=== PATIENT | male | born 1950 | race Caucasian/White ===

== ENCOUNTER → 2021-05-21 | Outpatient (CLI) | payer MEDICARE, BC ==
--- NOTE | 2021-05-21 11:42 | REP ---
INDICATION: ACUTE BRONCHITIS. COMPARISON: None TECHNIQUE: Two views of the chest were obtained FINDINGS: Linear areas of increased density in both lung bases are consistent with scarring and/or subsegmental atelectasis. No other parenchymal opacification is noted. The heart and great vessels are within normal limits for the patient's age. Mild degenerative changes are noted the thoracic spine. IMPRESSION: Scarring and or subsegmental atelectasis at both lung bases as above. <Electronically signed by Singh Messer > 05/21/21 [id number]
== END ==
LOC: M WUC 11:11
PROVIDERS: ATTEND Internal Medicine
DX: J20.9 Acute bronchitis, unspecified (principal)

== ENCOUNTER → 2022-09-29 | Outpatient (CLI) | payer MEDICARE, BC ==
[~2022-09-29] MED LIST: BAYE81TA10 PO; CENT1TAB PO; CHLO125TA PO; DUPI300P SC; LOSA50TA28 PO; POTA99CA2 PO; SIMV20TA22 PO; TADA5TAB PO; ZINC50TA17 PO
== END ==
LOC: M LABSMTC 09:27
PROVIDERS: ATTEND Anesthesiology
DX: Z01.818 Encounter for other preprocedural examination (principal); Z11.52 Encounter for screening for COVID-19

== ENCOUNTER → 2022-09-29 | Outpatient (CLI) | payer MEDICARE ==
[2022-09-29 12:00] LABS: BLOOD UREA NITROGEN 13 MG/DL (9-23); CALCIUM LEVEL 8.5 MG/DL (8.3-10.6); CARBON DIOXIDE LEVEL 30 MMOL/L (20-31); CHLORIDE LEVEL 93 MMOL/L (98-107); CREATININE FOR GFR 0.69 MG/DL (0.70-1.30); GLOMERULAR FILTRATION RATE > 60.0 (>42); GLUCOSE, FASTING 90 MG/DL (74-106); SODIUM LEVEL 130 MMOL/L (136-145)
== END ==
LOC: M EKG 10:21
PROVIDERS: ATTEND Anesthesiology
DX: Z01.818 Encounter for other preprocedural examination (principal)

== ENCOUNTER 2022-10-02 07:44 | Day surgery (SDC) | payer MEDICARE ==
[~2022-10-02] VITALS: Ht 177.8 cm; Wt 89.7 kg
[~2022-10-02 07:44] MED LIST changes: +NS 1,000 ML IV ONE
[2022-10-02] MEDS ORDERED: LIDOCAINE 2% 100MG/5ML SDV (FOR ANES.) As Ordered ONE (09:05)
[2022-10-02] MEDS ORDERED: propofoL 200 MG/20 ML VIAL As Ordered ONE (09:05)
[2022-10-02] MEDS ORDERED: hydrALAZINE 20MG/ML 1ML VIAL As Ordered ONE (09:06)
[2022-10-02 09:35] VITALS: BP 128/74
== END 2022-10-02 09:45 | disposition home or self-care (01) ==
LOC: M OPP 07:44
PROVIDERS: ATTEND Surgery
DX: Z86.010 Personal history of colon polyps (principal); D12.5 Benign neoplasm of sigmoid colon; K57.30 Diverticulosis of large intestine without perforation or abscess without bleeding; E78.00 Pure hypercholesterolemia, unspecified; I10 Essential (primary) hypertension; Z79.02 Long term (current) use of antithrombotics/antiplatelets; Z79.82 Long term (current) use of aspirin; Z79.899 Other long term (current) drug therapy; Z86.16 Personal history of COVID-19; Z87.891 Personal history of nicotine dependence
CPT/HCPCS: 45385; 88305; J0360

== ENCOUNTER → 2022-10-03 | Outpatient (CLI) | payer MEDICARE ==
[~2022-10-03] MED LIST changes: -NS 1,000 ML IV ONE
== END ==
LOC: M LABSMTC 08:54
PROVIDERS: ATTEND Anesthesiology
DX: Z01.818 Encounter for other preprocedural examination (principal); Z11.52 Encounter for screening for COVID-19

== ENCOUNTER 2022-10-07 06:01 | Day surgery (SDC) | payer MEDICARE ==
[~2022-10-07] VITALS: Ht 177.8 cm; Wt 89.8 kg
[~2022-10-07 06:01] MED LIST changes: +ceFAZolin SOD 2 GM in IV 1 EA IV ONE
[2022-10-07] MEDS ORDERED: SUGAMMADEX SODIUM 500 MG/5 ML VIAL (BRIDION) As Ordered ONE (06:57)
[2022-10-07] MEDS ORDERED: ROCURONIUM BROMIDE 50MG/5ML VIAL As Ordered ONE (06:57)
[2022-10-07] MEDS ORDERED: propofoL 200 MG/20 ML VIAL As Ordered ONE (06:57)
[2022-10-07] MEDS ORDERED: KETOROLAC 60MG 2ML VIAL As Ordered ONE (06:57)
[2022-10-07] MEDS ORDERED: ONDANSETRON 4MG 2ML VIAL As Ordered ONE (06:57)
[2022-10-07] MEDS ORDERED: LIDOCAINE 2% 100MG/5ML SDV (FOR ANES.) As Ordered ONE (06:57)
[2022-10-07] MEDS ORDERED: fentaNYL 100 MCG/2 ML INJECTION As Ordered ONE (07:05)
[2022-10-07] MEDS ORDERED: BUPIVACAINE/EPIN 0.25% 30ML VIAL As Ordered ONE (07:16)
[2022-10-07] MEDS ORDERED: ACETAMINOPHEN 1000MG 100ML IV BAG As Ordered ONE (07:46)
[2022-10-07] MEDS ORDERED: LABETALOL 100MG/20ML VIAL As Ordered ONE (08:21)
[2022-10-07] MEDS ORDERED: oxyCODONE 5MG TAB PO PRN (09:00)
[2022-10-07] MEDS ORDERED: fentaNYL 100 MCG/2 ML INJECTION IV PRN (09:00)
[2022-10-07] MEDS ORDERED: MEPERIDINE 25 MG/ML 1ML VIAL IV PRN (09:00)
[2022-10-07] MEDS ORDERED: METOCLOPRAMIDE INJ 10MG/2ML VIAL IV PRN (09:00)
[2022-10-07] MEDS ORDERED: LR 1,000 ML IV SCH (09:00)
[2022-10-07] MEDS ORDERED: ONDANSETRON 4MG 2ML VIAL IV PRN (09:00)
[2022-10-07] MEDS: MORPHINE 2 MG/ML 1ML VIAL IV PRN ×2 (09:17→09:25)
[2022-10-07] MEDS ORDERED: traMADol 50 MG TAB PO PRN (10:00)
[2022-10-07] MEDS ORDERED: NS 1,000 ML IV SCH (10:00)
[2022-10-07 10:19] VITALS: BP 156/87
== END 2022-10-07 10:25 | disposition home or self-care (01) ==
LOC: M SDC 06:01
PROVIDERS: ATTEND Surgery
DX: K40.90 Unilateral inguinal hernia, without obstruction or gangrene, not specified as recurrent (principal); I10 Essential (primary) hypertension; E78.5 Hyperlipidemia, unspecified; Z79.899 Other long term (current) drug therapy; Z86.16 Personal history of COVID-19; Z87.891 Personal history of nicotine dependence
CPT/HCPCS: 49650; C1781; J0131; J1100; J1885; J2405; J3010

== ENCOUNTER → 2023-05-06 | Outpatient (CLI) | payer MEDICARE ==
[~2023-05-06] MED LIST changes: -ceFAZolin SOD 2 GM in IV 1 EA IV ONE
[2023-05-06 11:29] LABS: BASO % 0.6 % (0.0-1.0); EOS # 0.2 10^3/uL (0.0-0.5); EOS % 6.8 % (0.0-3.0); HEMATOCRIT 40.5 % (42.0-52.0); HEMOGLOBIN 14.5 g/dl (13.5-17.5); LYMPH % 28.3 % (24.0-44.0); MEAN CORPUSCULAR HEMOGLOBIN 34.6 pg (27.0-33.0); MEAN CORPUSCULAR HGB CONC 35.8 g/dl (32.0-36.5); MEAN CORPUSCULAR VOLUME 96.7 fl (80.0-96.0); MONO # 0.5 10^3/uL (0.0-0.8); MONO % 14.7 % (2.0-8.0); NEUTROPHILS # 1.7 10^3/uL (1.5-8.5); NEUTROPHILS % 49.3 % (36.0-66.0); PLATELET COUNT, AUTOMATED 167 10^3/uL (150-450); RED BLOOD COUNT 4.19 10^6/uL (4.30-6.10); WHITE BLOOD COUNT 3.5 10^3/uL (4.0-10.0)
[2023-05-06 11:52] LABS: HEMOGLOBIN A1c 5.1 % (4.0-6.0)
[2023-05-06 11:56] LABS: THYROID STIMULATING HORMONE 1.506 uIU/ML (0.55-4.78)
[2023-05-06 11:57] LABS: ALBUMIN 3.8 G/DL (3.2-5.2); ALKALINE PHOSPHATASE 85 U/L (46-116); ALT/SGPT 27 U/L (7.0-40); AST/SGOT 21 U/L (<34); BILIRUBIN,TOTAL 0.8 MG/DL (0.3-1.2); BLOOD UREA NITROGEN 15 MG/DL (9-23); CALCIUM LEVEL 8.8 MG/DL (8.3-10.6); CARBON DIOXIDE LEVEL 29 MMOL/L (20-31); CHLORIDE LEVEL 95 MMOL/L (98-107); CHOLESTEROL LEVEL 146 MG/DL (<200); CHOLESTEROL RISK RATIO 2.74 (<5); CREATININE FOR GFR 0.72 MG/DL (0.70-1.30); GLOMERULAR FILTRATION RATE > 60.0 (>42); GLUCOSE, FASTING 89 MG/DL (74-106); HDL CHOLESTEROL 53.1 MG/DL (>40); LDL CHOLESTEROL 75.9 MG/DL (<100); NON-HDL-C 92.9 MG/DL; POTASSIUM SERUM 3.8 MMOL/L (3.5-5.1); SODIUM LEVEL 132 MMOL/L (136-145); TOTAL PROTEIN 6.2 G/DL (5.7-8.2); TRIGLYCERIDES LEVEL 85 MG/DL (<150)
== END ==
LOC: M PLALAB 08:16
PROVIDERS: ATTEND Physician Assistant
DX: R53.83 Other fatigue (principal); E78.00 Pure hypercholesterolemia, unspecified; Z12.5 Encounter for screening for malignant neoplasm of prostate
CPT/HCPCS: 36415; 80053; 80061; 83036; 84439; 84443; 85025; G0103

== ENCOUNTER → 2023-06-18 | Outpatient (CLI) | payer MEDICARE ==
[2023-06-18 11:43] LABS: BASO % 0.4 % (0.0-1.0); EOS # 0.3 10^3/uL (0.0-0.5); EOS % 5.6 % (0.0-3.0); HEMATOCRIT 40.1 % (42.0-52.0); HEMOGLOBIN 14.6 g/dl (13.5-17.5); LYMPH # 1.4 10^3/uL (1.5-5.0); LYMPH % 30.9 % (24.0-44.0); MEAN CORPUSCULAR HEMOGLOBIN 35.4 pg (27.0-33.0); MEAN CORPUSCULAR HGB CONC 36.4 g/dl (32.0-36.5); MEAN CORPUSCULAR VOLUME 97.1 fl (80.0-96.0); MONO # 0.5 10^3/uL (0.0-0.8); MONO % 11.9 % (2.0-8.0); NEUTROPHILS # 2.3 10^3/uL (1.5-8.5); PLATELET COUNT, AUTOMATED 177 10^3/uL (150-450); RED BLOOD COUNT 4.13 10^6/uL (4.30-6.10); WHITE BLOOD COUNT 4.5 10^3/uL (4.0-10.0)
[2023-06-18 11:47] LABS: IRON (FE) 142 UG/DL (65-175); PERCENT SATURATION 46.6 % (19.7-50.0); TOTAL IRON BINDING CAPACITY 305 UG/DL (250-425)
[2023-06-18 11:48] LABS: ALBUMIN 3.7 G/DL (3.2-5.2); ALKALINE PHOSPHATASE 88 U/L (46-116); ALT/SGPT 25 U/L (7.0-40); AST/SGOT 16 U/L (<34); BILIRUBIN,TOTAL 0.7 MG/DL (0.3-1.2); BLOOD UREA NITROGEN 12 MG/DL (9-23); CARBON DIOXIDE LEVEL 28 MMOL/L (20-31); CHLORIDE LEVEL 96 MMOL/L (98-107); CREATININE FOR GFR 0.68 MG/DL (0.70-1.30); GLOMERULAR FILTRATION RATE > 60.0 (>42); GLUCOSE, FASTING 110 MG/DL (74-106); SODIUM LEVEL 131 MMOL/L (136-145); TOTAL PROTEIN 6.1 G/DL (5.7-8.2)
[2023-06-18 11:50] LABS: FERRITIN 111.2 NG/ML (10.5-307.3); VITAMIN B12 LEVEL 357 PG/ML (211-911)
== END ==
LOC: M PLALAB 07:39
PROVIDERS: ATTEND Physician Assistant
DX: D64.9 Anemia, unspecified (principal); E87.1 Hypo-osmolality and hyponatremia

== ENCOUNTER → 2023-07-23 | Outpatient (CLI) | payer MEDICARE ==
[2023-07-23 10:23] LABS: BASO % 0.7 % (0.0-1.0); EOS # 0.2 10^3/uL (0.0-0.5); EOS % 4.2 % (0.0-3.0); HEMATOCRIT 43.5 % (42.0-52.0); HEMOGLOBIN 15.7 g/dl (13.5-17.5); LYMPH # 1.2 10^3/uL (1.5-5.0); LYMPH % 27.7 % (24.0-44.0); MEAN CORPUSCULAR HEMOGLOBIN 34.4 pg (27.0-33.0); MEAN CORPUSCULAR HGB CONC 36.1 g/dl (32.0-36.5); MEAN CORPUSCULAR VOLUME 95.4 fl (80.0-96.0); MONO # 0.6 10^3/uL (0.0-0.8); MONO % 12.8 % (2.0-8.0); NEUTROPHILS # 2.3 10^3/uL (1.5-8.5); NEUTROPHILS % 54.4 % (36.0-66.0); PLATELET COUNT, AUTOMATED 167 10^3/uL (150-450); RED BLOOD COUNT 4.56 10^6/uL (4.30-6.10); WHITE BLOOD COUNT 4.3 10^3/uL (4.0-10.0)
[2023-07-23 10:48] LABS: ALBUMIN 3.8 G/DL (3.2-5.2); BLOOD UREA NITROGEN 14 MG/DL (9-23); CALCIUM LEVEL 8.9 MG/DL (8.3-10.6); CARBON DIOXIDE LEVEL 29 MMOL/L (20-31); CHLORIDE LEVEL 99 MMOL/L (98-107); CREATININE FOR GFR 0.73 MG/DL (0.70-1.30); GLOMERULAR FILTRATION RATE > 60.0 (>42); GLUCOSE, FASTING 101 MG/DL (74-106); PHOSPHORUS LEVEL 3.4 MG/DL (2.4-5.1); POTASSIUM SERUM 4.1 MMOL/L (3.5-5.1); SODIUM LEVEL 134 MMOL/L (136-145)
== END ==
LOC: M PLALAB 07:46
PROVIDERS: ATTEND Physician Assistant
DX: D64.9 Anemia, unspecified (principal); R79.89 Other specified abnormal findings of blood chemistry

== ENCOUNTER → 2023-08-10 | Outpatient (CLI) | payer MEDICARE ==
[~2023-08-10] MED LIST changes: +ISOVUE-370 76% 100ML VIAL As Ordered ONE
== END ==
LOC: M RAD 08:17
PROVIDERS: ATTEND Physician Assistant
DX: R91.8 Other nonspecific abnormal finding of lung field (principal); K76.0 Fatty (change of) liver, not elsewhere classified; J98.4 Other disorders of lung
CPT/HCPCS: 71260; Q9967

== ENCOUNTER → 2023-08-14 | Outpatient (CLI) | payer MEDICARE ==
[~2023-08-14] MED LIST changes: -ISOVUE-370 76% 100ML VIAL As Ordered ONE
[2023-08-14 15:48] LABS: BASO % 0.4 % (0.0-1.0); EOS # 0.2 10^3/uL (0.0-0.5); EOS % 3.6 % (0.0-3.0); HEMATOCRIT 40.2 % (42.0-52.0); HEMOGLOBIN 14.5 g/dl (13.5-17.5); LYMPH # 1.4 10^3/uL (1.5-5.0); MEAN CORPUSCULAR HEMOGLOBIN 34.2 pg (27.0-33.0); MEAN CORPUSCULAR HGB CONC 36.1 g/dl (32.0-36.5); MEAN CORPUSCULAR VOLUME 94.8 fl (80.0-96.0); MONO # 0.5 10^3/uL (0.0-0.8); MONO % 11.1 % (2.0-8.0); NEUTROPHILS # 2.7 10^3/uL (1.5-8.5); NEUTROPHILS % 55.7 % (36.0-66.0); PLATELET COUNT, AUTOMATED 184 10^3/uL (150-450); RED BLOOD COUNT 4.24 10^6/uL (4.30-6.10); WHITE BLOOD COUNT 4.8 10^3/uL (4.0-10.0)
[2023-08-14 15:58] LABS: APPEARANCE, URINE CLEAR (CLEAR); BACTERIA, URINE AUTO NEGATIVE (NEGATIVE); BILIRUBIN, URINE AUTO NEGATIVE (NEGATIVE); BLOOD, URINE BLOOD NEGATIVE (NEGATIVE); COLOR, URINE YELLOW (YELLOW); GLUCOSE, URINE (UA) AUTO NEGATIVE (NEGATIVE); KETONE, URINE AUTO NEGATIVE (NEGATIVE); LEUKOCYTE ESTERASE, URINE AUTO NEGATIVE (NEGATIVE); MUCUS, URINE SMALL (NEGATIVE); NITRITE, URINE AUTO NEGATIVE (NEGATIVE); PROTEIN, URINE AUTO NEGATIVE (NEGATIVE); RBC, URINE AUTO 2 /HPF (0-3); SQUAMOUS EPITHELIAL CELL UR AU 0 /HPF (0-6); UROBILINOGEN, URINE AUTO 0.2 mg/dL (0.0-2.0); WBC, URINE AUTO 1 /HPF (0-3)
[2023-08-14 16:10] LABS: ALBUMIN 3.9 G/DL (3.2-5.2); BLOOD UREA NITROGEN 13 MG/DL (9-23); CALCIUM LEVEL 9.1 MG/DL (8.3-10.6); CARBON DIOXIDE LEVEL 31 MMOL/L (20-31); CHLORIDE LEVEL 97 MMOL/L (98-107); CREATININE FOR GFR 0.72 MG/DL (0.70-1.30); GLOMERULAR FILTRATION RATE > 60.0 (>42); GLUCOSE, FASTING 108 MG/DL (74-106); PHOSPHORUS LEVEL 3.2 MG/DL (2.4-5.1); POTASSIUM SERUM 3.7 MMOL/L (3.5-5.1); SODIUM LEVEL 133 MMOL/L (136-145)
== END ==
LOC: M PLALAB 14:44
PROVIDERS: ATTEND Nurse Practitioner Family
DX: R39.9 Unspecified symptoms and signs involving the genitourinary system (principal); R10.9 Unspecified abdominal pain

== ENCOUNTER → 2023-08-24 | Outpatient (CLI) | payer MEDICARE | LOC: M WHC 11:20 | PROVIDERS: ATTEND Nurse Practitioner Family | DX: R10.9 Unspecified abdominal pain (principal) ==

== ENCOUNTER → 2023-09-11 | Outpatient (CLI) | payer MEDICARE | LOC: M PLAIMG 08:35 | PROVIDERS: ATTEND Physician Assistant | DX: R10.9 Unspecified abdominal pain (principal); M54.9 Dorsalgia, unspecified; M54.50 Low back pain, unspecified ==

== ENCOUNTER → 2024-07-07 | Outpatient (CLI) | payer MEDICARE ==
[~2024-07-07] MED LIST changes: -TADA5TAB PO; +TADA5TAB94 PO
== END ==
LOC: M WUC 13:18
PROVIDERS: ATTEND Student in an Organized Health Care Education/Training Program
DX: J06.9 Acute upper respiratory infection, unspecified (principal); R05.9 Cough, unspecified

== ENCOUNTER → 2024-07-21 | Outpatient (CLI) | payer MEDICARE ==
[2024-07-21 16:16] LABS: ALBUMIN 3.6 G/DL (3.2-5.2); ALKALINE PHOSPHATASE 82 U/L (40-129); ALT/SGPT 27 U/L (7.0-40); AST/SGOT 15 U/L (<34); BILIRUBIN,TOTAL 0.5 MG/DL (0.3-1.2); BLOOD UREA NITROGEN 16 MG/DL (9-23); CARBON DIOXIDE LEVEL 28 MMOL/L (20-31); CHLORIDE LEVEL 103 MMOL/L (98-107); CREATININE FOR GFR 0.92 MG/DL (0.70-1.30); GLOMERULAR FILTRATION RATE > 60.0 (>42); GLUCOSE, FASTING 98 MG/DL (74-106); POTASSIUM SERUM 4.2 MMOL/L (3.5-5.1); SODIUM LEVEL 136 MMOL/L (136-145); TOTAL PROTEIN 6.2 G/DL (5.7-8.2)
== END ==
LOC: M PLALAB 12:09
PROVIDERS: ATTEND Family Medicine
DX: I48.0 Paroxysmal atrial fibrillation (principal); I50.30 Unspecified diastolic (congestive) heart failure

== ENCOUNTER → 2024-08-15 | Outpatient (CLI) | payer MEDICARE ==
[2024-08-15 16:01] LABS: HEMATOCRIT 41.4 % (42.0-52.0); HEMOGLOBIN 14.2 g/dl (13.5-17.5); MEAN CORPUSCULAR HEMOGLOBIN 34.1 pg (27.0-33.0); MEAN CORPUSCULAR HGB CONC 34.3 g/dl (32.0-36.5); MEAN CORPUSCULAR VOLUME 99.3 fl (80.0-96.0); PLATELET COUNT, AUTOMATED 164 10^3/uL (150-450); RED BLOOD COUNT 4.17 10^6/uL (4.30-6.10)
[2024-08-15 16:13] LABS: ALBUMIN 3.8 G/DL (3.2-5.2); ALKALINE PHOSPHATASE 87 U/L (40-129); ALT/SGPT 20 U/L (7.0-40); AST/SGOT 16 U/L (<34); BILIRUBIN,TOTAL 0.7 MG/DL (0.3-1.2); BLOOD UREA NITROGEN 16 MG/DL (9-23); CALCIUM LEVEL 8.6 MG/DL (8.3-10.6); CARBON DIOXIDE LEVEL 28 MMOL/L (20-31); CHLORIDE LEVEL 101 MMOL/L (98-107); CHOLESTEROL LEVEL 162 MG/DL (<200); CHOLESTEROL RISK RATIO 2.84 (<5); CREATININE FOR GFR 0.93 MG/DL (0.70-1.30); GLOMERULAR FILTRATION RATE > 60.0 (>42); GLUCOSE, FASTING 111 MG/DL (74-106); POTASSIUM SERUM 3.8 MMOL/L (3.5-5.1); SODIUM LEVEL 139 MMOL/L (136-145); TOTAL PROTEIN 6.3 G/DL (5.7-8.2); TRIGLYCERIDES LEVEL 120 MG/DL (<150)
== END ==
LOC: M PLALAB 10:35
PROVIDERS: ATTEND Nurse Practitioner Family
DX: I50.42 Chronic combined systolic (congestive) and diastolic (congestive) heart failure (principal)

== ENCOUNTER 2025-06-12 20:27 | Emergency (ER) | payer MEDICARE ==
[~2025-06-12 20:27] MED LIST changes: +TADA5TAB2 PO; -TADA5TAB94 PO
[2025-06-12] MEDS: ONDANSETRON 4MG/2ML VIAL IV ONE (20:53)
[2025-06-12] MEDS: KETOROLAC 30 MG/ML 1 ML VIAL IV ONE (20:53)
[2025-06-12] MEDS: PROPARACAINE 0.5% OPHTH SOL 15ML OS ONE (20:53)
[2025-06-12] MEDS: hydrALAZINE 20 MG/ML 1 ML VIAL IV STA ×2 (20:53→22:03)
[2025-06-12] MEDS: ACETAMINOPHEN *IV* 1,000 MG in IV 1 EA IV ONE (20:54)
[2025-06-12] MEDS: NS 500 ML IV ONE (20:55)
[2025-06-12 23:32] VITALS: BP 195/102
[2025-06-13] MEDS: prednisoLONE ACET 1% OPHTH SUSP 5ML OS STA (01:43)
[2025-06-13 02:16] VITALS: BP 169/95; TEMP 98.2; O2SAT 96
== END 2025-06-13 02:17 | disposition home or self-care (01) ==
LOC: M ED 20:27 → EDBD 20:27 → M ED 06-13 02:17
DX: I16.0 Hypertensive urgency (principal); R51.9 Headache, unspecified; I10 Essential (primary) hypertension; E78.5 Hyperlipidemia, unspecified; Z79.1 Long term (current) use of non-steroidal anti-inflammatories (NSAID); Z79.899 Other long term (current) drug therapy; Z79.810 Long term (current) use of selective estrogen receptor modulators (SERMs)
CPT/HCPCS: 70450; 70480; 96365; 96366; 96375; 96376; 99284; J0134; J0360; J1885; J2405; J2765